=== PATIENT | male | born 1960 | race Caucasian/White ===

== ENCOUNTER 2017-05-21 19:29 | Emergency (ER) | payer OTHER ==
[~2017-05-21] VITALS: Ht 177.8 cm; Wt 169.3 kg
[~2017-05-21 19:29] MED LIST: ADULT LOW DOSE81 M1 PO; ALAVERT10 MG PO; AMLODIPINE-BEN1 EAC5 PO; ASPIRIN CHEWABL81 M1 PO; ASPIRIN81 M1 PO; FISH OIL500 MG PO; FUROSEMIDE40 MG PO; LASIX40 MG PO; METOCLOPRAMIDE PO; NIACIN500 M1 PO; PANTOPRAZOLE SO40 MG PO; PRAVASTATIN SOD40 MG PO; PROTONIX40 MG PO; Protonix PO; Reglan PO; SIMVASTATIN20 MG PO; SPIRONOLACTONE25 MG PO; TRAMADOL HCL50 MG PO; VITAMIN B12-FO1 EACH PO; VITAMIN D; Vitamin B-12 SC; Vitamin D, Drisdol PO; ZANTAC150 MG PO; Zocor PO
[2017-05-21 21:21] LABS: HEMATOCRIT 44.6 % (38.0-50.0); MCH 27.7 PG (29.0-34.0); MCHC 33.4 G/DL (30.0-36.0); MCV 83.1 FL (86-99); MEAN PLAT.VOLUME 9.3 uM^3 (9.0-12.4); PLATELET COUNT 186 K/uL (156-360); RBC DIS.WIDTH-CV 13.6 % (11.8-14.6); RBC DIS.WIDTH-SD 40.6 % (39-53); RED BLOOD COUNT 5.37 M/uL (4.00-5.50); WHITE BLOOD COUNT 10.1 K/uL (4.1-10.2)
[2017-05-21 21:34] LABS: CHLORIDE 104 mEq/L (99-109); POTASSIUM 3.8 mEq/L (3.7-5.4); SODIUM 142 mEq/L (136-147)
[2017-05-21 21:35] LABS: GLUCOSE 117 mg/dL (70-99)
[2017-05-21 21:37] LABS: ANION GAP 12 MEQ/L (2-14)
[2017-05-21 21:39] LABS: GFR ESTIMATE (CALCULATED) > 59 mL/min/ (58.99-99999)
[2017-05-21 21:40] LABS: UREA NITROGEN (BUN) 10 mg/dL (9-23)
[2017-05-21] MEDS ORDERED: IPRATROPIUM BRO15 ML BOTH NARES (21:53)
[2017-05-21] MEDS ORDERED: AMOXICILLIN875 MG PO (21:53)
[2017-05-21] MEDS ORDERED: TESSALON200 MG PO (21:53)
[2017-05-21 22:15] VITALS: BP 132/76
== END 2017-05-21 22:17 | disposition home or self-care (01) ==
LOC: EME 19:29
DX: J06.9 Acute upper respiratory infection, unspecified (principal); J32.9 Chronic sinusitis, unspecified; K21.9 Gastro-esophageal reflux disease without esophagitis; I10 Essential (primary) hypertension; E78.5 Hyperlipidemia, unspecified
CPT/HCPCS: 71020; 80048; 85027; 99281; 99284

== ENCOUNTER 2017-10-28 21:00 | Observation (INO) | payer OTHER ==
[~2017-10-28] VITALS: Ht 180.3 cm; Wt 168.4 kg
[~2017-10-28 21:00] MED LIST changes: +AMOXICILLIN875 MG PO; +IPRATROPIUM BRO15 ML BOTH NARES; +TESSALON200 MG PO
[2017-10-28 21:45] LABS: BASOPHIL (%) 0.5 % (0-1); BASOPHIL COUNT 0.1 K/uL (0-0.1); EOSINOPHIL (%) 0.7 % (0-5); EOSINOPHIL COUNT 0.1 K/uL (0-0.3); HEMATOCRIT 44.3 % (38.0-50.0); HEMOGLOBIN 15.7 G/DL (12.5-16.6); IMMATURE GRANULOCYTE (%) 0.3 % (0.0-0.7); LYMPHOCYTE (%) 31.2 % (15-42); LYMPHOCYTE COUNT 4.1 K/uL (1.0-2.8); MCH 29.5 PG (29.0-34.0); MCHC 35.4 G/DL (30.0-36.0); MCV 83.1 FL (86-99); MONOCYTE (%) 6.9 % (3-12); MONOCYTE COUNT 0.9 K/uL (0-0.8); NEUTROPHIL (%) 60.4 % (45-76); PLATELET COUNT 382 K/uL (156-360); RBC DIS.WIDTH-CV 14.1 % (11.8-14.6); RBC DIS.WIDTH-SD 41.3 % (39-53); RED BLOOD COUNT 5.33 M/uL (4.00-5.50); WHITE BLOOD COUNT 13.3 K/uL (4.1-10.2)
[2017-10-28 21:53] LABS: PTT 35.3 SEC (25-37)
[2017-10-28 21:57] LABS: AMYLASE 22 IU/L (1-118); CHLORIDE 104 mEq/L (99-109); POTASSIUM 4.1 mEq/L (3.7-5.4); SODIUM 141 mEq/L (136-147)
[2017-10-28 21:59] LABS: GLUCOSE 103 mg/dL (70-99)
[2017-10-28 22:02] LABS: SERUM ETHYL ALCOHOL < 10 mg/dL
[2017-10-28 22:03] LABS: CREATININE 0.7 mg/dL (0.6-1.3); GFR ESTIMATE (CALCULATED) > 59 mL/min/ (58.99-99999)
[2017-10-28 22:04] LABS: UREA NITROGEN (BUN) 8 mg/dL (9-23)
[2017-10-28 22:05] LABS: TROP-I INTERPRETATION NEGATIVE; TROPONIN-I < 0.01 ng/mL (0.0-0.30)
[2017-10-28 22:06] LABS: LIPASE 11 U/L (1.0-51.0)
[2017-10-28 22:47] LABS: INTER. NORMALIZED RATIO 1.1
[2017-10-28] MEDS ORDERED: IPRATROPIUM BRO15 ML BOTH NARES (23:55)
[2017-10-28] MEDS ORDERED: LIPITOR20 MG PO (23:56)
[2017-10-28] MEDS ORDERED: ATARAX,VISTARIL25 MG PO (23:57)
[2017-10-28] MEDS ORDERED: METFORMIN HCL500 MG PO (23:57)
[2017-10-28] MEDS ORDERED: ZOLOFT100 MG PO (23:57)
[2017-10-28] MEDS ORDERED: TYLENOL EXTRA500 MG PO (23:58)
[2017-10-29 00:26] LABS: APPEARANCE CLEAR ((CLEAR)); BILIRUBIN NEGATIVE; BLOOD NEGATIVE; COLOR YELLOW ((YELLOW)); GLUCOSE (STRIP) NEGATIVE; KETONES NEGATIVE; LEUKOCYTES NEGATIVE; NITRITE NEGATIVE; PROTEIN (STRIP) NEGATIVE; SPECIFIC GRAVITY 1.014 (1.000-1.030); UCUL ADDED? NO; UROBILINOGEN 0.2 MG/DL (0.2-1.0)
[2017-10-29 00:35] LABS: AMPHETAMINE NEGATIVE (500 ng/mL); BARBITURATES NEGATIVE (200 ng/mL); BENZODIAZEPINES NEGATIVE (150 ng/mL); BUPRENORPHINE NEGATIVE (10 ng/mL); COCAINE NEGATIVE (150 ng/mL); METHADONE NEGATIVE (200 ng/mL); METHAMPHETAMINE NEGATIVE (500 ng/mL); OPIATES (MORPHINE) NEGATIVE (100 ng/mL); OXYCODONE NEGATIVE (100 ng/mL); PHENCYCLIDINE NEGATIVE (25 ng/mL); PROPOXYPHENE NEGATIVE (300 ng/mL); THC CANNABINOIDS NEGATIVE (50 ng/mL); TRICYCLIC ANTIDEPRESSANTS NEGATIVE (300 ng/mL)
[2017-10-29 03:31] VITALS: BP 129/75
[2017-10-29 04:36] LABS: HDL CHOLESTEROL 34 MG/DL (Desirable>=40); LDL CHOLESTEROL 129 mg/dL (Desirable<100); NON-HDL CHOLESTEROL 176 mg/dL (Desirable<160); TOTAL CHOLESTEROL 210 mg/dL (Desirable<200); TRIGLYCERIDES 234 MG/DL (Normal: <150)
[2017-10-29 05:52] LABS: TROP-I INTERPRETATION NEGATIVE; TROPONIN-I < 0.01 ng/mL (0.0-0.30)
[2017-10-29 09:45] VITALS: BP 139/72
[2017-10-29 11:03] LABS: HEMOGLOBIN A1c (GLYCOHEMOGLOB) 5.9 % (Below 5.7)
[2017-10-29 11:28] LABS: HEMATOCRIT 42.8 % (38.0-50.0); HEMOGLOBIN 14.4 G/DL (12.5-16.6); MCH 28.2 PG (29.0-34.0); MCHC 33.6 G/DL (30.0-36.0); MCV 83.8 FL (86-99); RBC DIS.WIDTH-CV 13.3 % (11.8-14.6); RBC DIS.WIDTH-SD 40.7 % (39-53); RED BLOOD COUNT 5.11 M/uL (4.00-5.50); WHITE BLOOD COUNT 10.1 K/uL (4.1-10.2)
[2017-10-29 11:29] LABS: TROP-I INTERPRETATION NEGATIVE; TROPONIN-I < 0.01 ng/mL (0.0-0.30)
[2017-10-29 11:37] LABS: PLATELET COUNT 202 K/uL (156-360)
[2017-10-29 13:23] VITALS: BP 121/66
[2017-10-29 16:47] VITALS: BP 122/72
== END 2017-10-29 19:27 | disposition home or self-care (01) ==
LOC: EME 21:00 → EDOF 10-29 02:34 → EDLOC 10-29 02:34 → EDOF 10-29 02:34 → ENRESERV 10-29 02:37 → 4SOUTH 10-29 04:32
PROVIDERS: Emergency Medicine; Hospitalist; Physician Assistant
DX: G45.9 Transient cerebral ischemic attack, unspecified (principal); R47.81 Slurred speech; I10 Essential (primary) hypertension; E11.9 Type 2 diabetes mellitus without complications; E78.5 Hyperlipidemia, unspecified; G47.33 Obstructive sleep apnea (adult) (pediatric); F41.9 Anxiety disorder, unspecified; F32.9 Major depressive disorder, single episode, unspecified; E66.01 Morbid (severe) obesity due to excess calories; K21.9 Gastro-esophageal reflux disease without esophagitis; Z86.19 Personal history of other infectious and parasitic diseases; Z79.82 Long term (current) use of aspirin; Z82.49 Family history of ischemic heart disease and other diseases of the circulatory system; Z80.3 Family history of malignant neoplasm of breast; Z88.8 Allergy status to other drugs, medicaments and biological substances
CPT/HCPCS: 70450; 70496; 70498; 70551; 71045; 71046; 80048; 80061; 81003; 82150; 82948; 83036; 83690; 84484; 85025; 85027; 85610; 85730; 86850; 86900; 86901; 93005; 99281; 99285; G0378; G0480; J1644; J1815